=== PATIENT | female | born 1970 | race Caucasian/White ===

== ENCOUNTER 2017-12-29 14:37 | Emergency (ER) | payer OTHER ==
[~2017-12-29] VITALS: Ht 167.6 cm; Wt 129.3 kg
[~2017-12-29 14:37] MED LIST: ALBU90OI INH; ALEVE PRN; AMOCLA875 PO; AZIT250 PO; Augmentin 875-1 EACH PO; Bactrim Ds Tab1 EACH PO; CEPH500 PO; CIPR500 PO; CODGUAEL PO; Diflucan100 MG PO; ERGO50000; ESCI10 PO; ESCI20 PO; ESCI5 PO; ESTR.05PBW PO; ESTR2 PO; ESTRADIOL TOP; ESTRADIOL1 MG; FISH1000; Flonase 0.05% N16 GM; HYDACE5 PO; HYDACE5325 PO; HYDCHL12.5 PO; HYDR1TAB94 PO; HYOS.125 SL; Hydroxyzine HCl50 MG PO; LANS15EC PO; LEVSOD50; LEVSOD75 PO; Levothyroxine200 MCG PO; MULTI VITAMIN DAILY; MULVITMIND PO; NAPR500 PO; Norco 5-325 Ta1 EACH PO; OMEP20ER; OMEP20ER PO; OXYACE5T PO; Omeprazole20 M1 PO; PRED20 PO; PROBIOTIC1 EAC1; PROC5 PO; PROG100 PO; PROM25; PROM25 PO; PROP10; PROP120ER; PROP120ER PO; PROP60 PO; Percocet 5-3251 EACH PO; RANI150; RXHYDMOR2 PO; SPIR50 PO; SYNTHROID25 MCG PO; Synthroid25 MCG; TRAM50 PO
[2017-12-29 15:04] LABS: BASOPHILS ABSOLUTE AUTO 0.05 K/mm3 (0.00-0.23); BASOPHILS PERCENT AUTO 1 % (0-2); EOSINOPHILS ABSOLUTE AUTO 0.29 K/mm3 (0.00-0.68); EOSINOPHILS PERCENT AUTO 4 % (0-6); Hematocrit 45.3 % (33.0-51.0); Hemoglobin 14.7 g/dL (11.5-16.0); IMMATURE GRAN ABSOLUTE AUTO 0.04 K/mm3 (0.00-0.10); IMMATURE GRAN PERCENT AUTO 1 % (0-1); LYMPHOCYTES ABSOLUTE AUTO 1.76 K/mm3 (0.84-5.20); LYMPHOCYTES PERCENT AUTO 22 % (21-46); MONOCYTES ABSOLUTE AUTO 0.39 K/mm3 (0.16-1.47); MONOCYTES PERCENT AUTO 5 % (4-13); Mean Corpuscular HGB 28.4 pg (26.0-34.0); Mean Corpuscular HGB Conc 32.5 g/dL (31.5-36.5); Mean Corpuscular Volume 88 fL (80-100); Mean Platelet Volume 9.8 fL (9.1-12.4); NEUTROPHILS PERCENT AUTO 69 % (41-73); Platelet Count 282 K/mm3 (150-400); RDW Coefficient Variation 13.3 % (11.7-14.2); RDW Standard Deviation 42.7 fL (35.1-46.3); Red Blood Cell Count 5.17 M/mm3 (3.80-5.20); White Blood Cell Count 8.13 K/mm3 (4.00-11.30)
[2017-12-29 15:27] LABS: Alanine Aminotransfer (ALT/SGP 50 U/L (12-78); Albumin, Blood 3.3 g/dL (3.4-5.0); Albumin/Globulin Ratio 0.8 (0.8-1.8); Alk Phos 84 U/L (50-136); Anion Gap 7 mmol/L (6-16); Aspartate Aminotrans (AST/SGOT 31 U/L (12-37); Bilirubin, Total 0.7 mg/dL (0.1-1.0); Blood Urea Nitrogen 15 mg/dL (8-24); Bun/Creatinine Ratio 16.5 (12.0-20.0); CO2, Blood 28 mmol/L (21-32); Chloride, Blood 104 mmol/L (98-108); Creatinine, Blood 0.91 mg/dL (0.40-1.00); Globulin, Blood 4.4 g/dL (2.2-4.0); Glomerular Filtration Rate >60 (60-); Glucose, Blood 157 mg/dL (70-99); Potassium, Blood 3.9 mmol/L (3.5-5.5); Sodium, Blood 139 mmol/L (136-145); Total Protein, Blood 7.7 g/dL (6.4-8.2)
[2017-12-29 16:14] LABS: Source, Urine Clean Catch
[2017-12-29 16:22] LABS: Appearance, Urine Hazy (Clear); Bilirubin, Urine Neg (Neg); Blood, Urine 5+ (Neg); Color, Urine Amber (P-Yellow); Glucose Qualitative, Urine Neg (Neg); Ketones, Urine Neg (Neg); Leukocyte Esterase, Urine Neg (Neg); Nitrite, Urine Neg (Neg); Protein, Urine 2+ (Neg); Specific Gravity, Urine 1.025 (1.003-1.022); Urobilinogen, Urine NORM (Normal)
[2017-12-29 16:33] LABS: Bacteria Few /hpf; Calcium Oxalate Crystals Few /hpf; Red Blood Cells, Urine TNTC /hpf (0-2); Squamous Epithelial Cells Many /hpf (Few); White Blood Cells, Urine Not Seen /hpf (0-5)
[2017-12-29 16:34] LABS: Amorphous Light (0-Heavy)
[2017-12-29] MEDS ORDERED: Norco 5-325 Ta1 EACH PO (17:15)
== END 2017-12-29 17:38 | disposition home or self-care (01) ==
LOC: ER 14:37
PROVIDERS: Emergency Medicine
DX: N23 Unspecified renal colic (principal); N20.0 Calculus of kidney; I10 Essential (primary) hypertension; Z79.899 Other long term (current) drug therapy
CPT/HCPCS: 36415; 74176; 80053; 81001; 83690; 85025; 96374; 96375; 96376; 99284; J1170; J1885; J2405